=== PATIENT | male | born 1975 | race Caucasian/White ===

== ENCOUNTER 2018-06-22 00:08 | Emergency (ER) | payer MEDICAID, OTHER ==
[~2018-06-22] VITALS: Ht 172.7 cm; Wt 79.9 kg
[2018-06-22 00:09] VITALS: BP 132/82; PULSE 109; RESP 19; Ht 172.7 cm; Wt 79.9 kg
[2018-06-22] MEDS ORDERED: CLINDAMYCIN 600 MG INJ IM ONE (01:00)
--- NOTE | 2018-06-22 01:03 | ERD ---
ER Documentation Chief Complaint Chief Complaint STATES LT MIDDLE FINGER INFECTION, PAIN AND SWELLING X10 DAYS, ON ABX HPI 32-year-old male presents here to emergency department for complaints of left middle finger pain and swelling surrounding the nail, complains of pain, throbbing pain, 6/10 scale, has been going on for 10 days now, was placed on Bactrim and Keflex, seems to be not working. Patient denies any fever or chills. Patient denies any numbness or tingling ROS All systems reviewed and are negative except as per history of present illness. Medications Home Meds Active Scripts Clindamycin Hcl* (Clindamycin Hcl*) 300 Mg Capsule, 300 MG PO TID for 10 Days, CAP Prov:ELIANA SETHI INTERACTIVE DESIGNER 06/22/18 Hydrocodone/Acetaminophen ([place] 5-325 Tablet) 1 Each Tablet, 1 TAB PO Q6H PRN for SEVERE PAIN LEVEL 7-10, #7 TAB Prov:ELIANA SETHI INTERACTIVE DESIGNER 06/22/18 Ibuprofen* (Motrin*) 600 Mg Tab, 600 MG PO Q6H PRN for PAIN AND OR ELEVATED TEMP, #30 TAB Prov:ELIANA SETHI INTERACTIVE DESIGNER 06/22/18 Reported Medications [None] Unknown Strength No Conflict Check 06/22/18 Allergies Allergies: Coded Allergies: No Known Allergy (Unverified , 06/22/18) PMhx/Soc Medical and Surgical Hx: pt denies Medical Hx, pt denies Surgical Hx FmHx Family History: No diabetes, No coronary disease, No other Physical Exam Vitals Vital Signs Date Temp Pulse Resp B/P (MAP) Pulse Ox O2 O2 Flow FiO2 Time Delivery Rate 06/22/18 98.5 109 19 132/82 98 00:09 (99) Physical Exam GENERAL: The patient is well developed and appropriate for usual state of health, in no apparent distress. CHEST: Clear to auscultation bilaterally. There are no rales, wheezes or rhonchi. HEART: Regular rate and rhythm. No murmurs, clicks, rubs or gallops. No S3 or S4. ABDOMEN: Soft, nontender and nondistended. Good bowel sounds. No rebound or guarding. No gross peritonitis. No gross organomegaly or masses. No Morse sign or McBurney point tenderness. BACK: No midline or flank tenderness. EXTREMITIES: noted erythema, tender on palpation surrounding the the third fingrnail, fluctuant. Equal pulses bilaterally. There is no peripheral clubbing, cyanosis or edema. No focal swelling or erythema. Full range of motion. Grossly neurovascularly intact. NEURO: Alert and oriented. Cranial nerves 2-12 intact. Motor strength in all 4 extremities with 5/5 strength. Sensation grossly intact. Normal speech and gait. SKIN: There is no apparent rash or petechia. The skin is warm and dry. HEMATOLOGIC AND LYMPHATIC: There is no evidence of excessive bruising or lymphedema. No gross cervical, axillary, or inguinal lymphadenopathy. Results 24 hrs Current Medications Medications Dose Sig/Ofelia Start Time Status Last (Trade) Ordered Route PRN Stop Time Admin Dose Reason Admin Clindamycin 600 mg ONCE ONCE 06/22/18 Cancel Phosphate IM 01:00 (Cleocin) 06/22/18 01:01 Clindamycin 600 mg ONCE ONCE 06/22/18 DC 06/22/18 Phosphate IM 01:30 01:27 (Cleocin) 06/22/18 01:31 Ketorolac 60 mg ONCE STAT 06/22/18 DC Tromethamine IM 01:31 (Toradol) 06/22/18 01:32 Procedures/MDM Procedure Note: After obtaining informed consent, the wound was irrigated with 250 ml of normal saline and cleaned with diluted betadine. Using aseptic technique, a 0.5 cm incision was made to drain the fluctuant area of the paronychia. Pustular discharge was drained. After the procedure, dry dressing was applied on the area. Patient tolerated procedure well. Medical Decision Making: Patient's pain is most likely consistent with a paronychia. There is no suspicion for neurovascular compromise. Patient has intact sensation and circulation of the affected extremity. There is low suspicion for septic arthritis. Patient does not have any fever. Disposition: Home. Patient is given prescription for ibuprofen for pain, clindamycin, norco . Patient was advised to elevate the affected area and apply ice on affected area. Patient was advised that if symptoms are worse, numbness, tingling, high fever, unable to move joint, worsening symptoms, to return to emergency department immediately. Otherwise, patient is advised to follow up with the primary care doctor in 2 days for wound check. Disclaimer: Inadvertent spelling and grammatical errors are likely due to EHR/dictation software use and do not reflect on the overall quality of patient care. Also, please note that the electronic time recorded on this note does not necessarily reflect the actual time of the patient encounter. Departure Diagnosis: Primary Impression: Paronychia Condition: Stable Patient Instructions: Paronychia Additional Instructions: Patient is given prescription for ibuprofen for pain, clindamycin, norco . Patient was advised to elevate the affected area and apply ice on affected area. Patient was advised that if symptoms are worse, numbness, tingling, high fever, unable to move joint, worsening symptoms, to return to emergency department immediately. Otherwise, patient is advised to follow up with the primary care doctor in 2 days for wound check. ELIANA SETHI NP Jun 22, 2018 01:03
[2018-06-22] MEDS ORDERED: CLINDAMYCIN 300 MG INJ IM ONE (01:30)
[2018-06-22] MEDS ORDERED: KETOROLAC 60 MG INJ IM STA (01:31)
[2018-06-22] MEDS ORDERED: CLIN300C10 PO (01:36)
[2018-06-22] MEDS ORDERED: HYDR-4011 PO (01:36)
[2018-06-22] MEDS ORDERED: IBUP-1542 PO (01:36)
[2018-06-27] MEDS ORDERED: TRAM50TA2 PO (20:31)
== END 2018-06-22 02:18 | disposition home or self-care (01) ==
LOC: FTE 00:08
DX: L03.012 Cellulitis of left finger (principal)
CPT/HCPCS: 10060; 96372; J1885; Z7502; Z7610

== ENCOUNTER 2018-06-25 23:47 | Emergency (ER) | payer MEDICAID ==
[~2018-06-25] VITALS: Ht 172.7 cm; Wt 84.8 kg
[~2018-06-25 23:47] MED LIST: CLIN300C10 PO; HYDR-4011 PO; IBUP-1542 PO
[2018-06-25 23:52] VITALS: BP 140/86; PULSE 105; RESP 20; Ht 172.7 cm; Wt 84.8 kg
--- NOTE | 2018-06-26 00:20 | ERD ---
ER Documentation Chief Complaint Chief Complaint wound check left 3rd finger. dx paronychia 3 days ago HPI Patient is here for 3-day wound check on paronychia of left middle finger. He is taking antibiotics as prescribed and states his symptoms are improving. ROS All systems reviewed and are negative except as per history of present illness. Medications Home Meds Active Scripts Clindamycin Hcl* (Clindamycin Hcl*) 300 Mg Capsule, 300 MG PO TID for 10 Days, CAP Prov:ELIANA SETHI PHYSICAL EDUCATION SPECIALIST 06/22/18 Hydrocodone/Acetaminophen ([place] 5-325 Tablet) 1 Each Tablet, 1 TAB PO Q6H PRN for SEVERE PAIN LEVEL 7-10, #7 TAB Prov:ELIANA SETHI PHYSICAL EDUCATION SPECIALIST 06/22/18 Ibuprofen* (Motrin*) 600 Mg Tab, 600 MG PO Q6H PRN for PAIN AND OR ELEVATED TEMP, #30 TAB Prov:ELIANA SETHI PHYSICAL EDUCATION SPECIALIST 06/22/18 Reported Medications [None] Unknown Strength No Conflict Check 06/22/18 Allergies Allergies: Coded Allergies: No Known Allergy (Unverified , 06/22/18) PMhx/Soc Hx Alcohol Use: No Hx Substance Use: No Hx Tobacco Use: No FmHx Family History: No diabetes Physical Exam Vitals Vital Signs Date Temp Pulse Resp B/P (MAP) Pulse Ox O2 O2 Flow FiO2 Time Delivery Rate 06/25/18 98.8 105 20 140/86 98 23:52 (104) Physical Exam Const: No acute distress Head: Atraumatic Eyes: Normal Conjunctiva ENT: Normal External Ears, Nose and Mouth. Neck: Full range of motion. No meningismus. Resp: Clear to auscultation bilaterally Cardio: Regular rate and rhythm, no murmurs Hand -left: Skin: Healing paronychia left middle finger Compartments: Soft Sensation: Intact shoulder/pinky/middle finger/thumb web space Bones: Nontender Snuffbox: Nontender Joints: No effusion Wrist: Flex/Ext: Normal Uln/Radial deviation: Normal Pron/Supination Normal Finger: Flex/Ext: Normal Add/abd: Normal Thumb: Flex/Ext: Normal Opposition: Normal Thumbs up: Normal Procedures/MDM 42-year-old here for a wound check. Wound is healing appropriately. Continue to take antibiotics as prescribed. Patient counseled regarding my diagnostic impression and care plan. Prior to discharge all questions answered. Pt agrees with treatment plan and understands strict return precautions. Pt is instructed to follow up with primary care provider within 24-48 hours. Precautionary instructions provided including instructions to return to the ER if not improving or for any worsening or changing symptoms or concerns. Departure Diagnosis: Primary Impression: Encounter for wound re-check Condition: Stable Patient Instructions: Wound Care Additional Instructions: Llame al doctor SHASHANK y salvador danie TANI PARA DENTRO DE 1-2 DORSEY.Dgale a la secretaria que nosotros le instruimos hacer esta tani.Avise o llame si mcclure condicin se empeora antes de la tani. Regresa aqui si peor o no mejor. GALINDO BARKER PA-C Jun 26, 2018 00:20
[2018-06-26] MEDS ORDERED: HYDROCODONE/APAP (5/325) TAB PO ONE (01:00)
[2018-06-27] MEDS ORDERED: TRAM50TA2 PO (20:31)
== END 2018-06-26 00:42 | disposition home or self-care (01) ==
LOC: FTE 23:47
DX: Z48.01 Encounter for change or removal of surgical wound dressing (principal)
CPT/HCPCS: Z7502; Z7610; 99283